=== PATIENT | female | born 1940 | race Caucasian/White ===

== ENCOUNTER 2018-03-15 14:02 | Emergency (ER) | payer MEDICARE | END 2018-03-15 15:04 | disposition home or self-care (01) | LOC: EDH 14:02 | DX: R21 Rash and other nonspecific skin eruption (principal); R20.8 Other disturbances of skin sensation; I11.0 Hypertensive heart disease with heart failure; I50.9 Heart failure, unspecified; E78.00 Pure hypercholesterolemia, unspecified; Z90.710 Acquired absence of both cervix and uterus; Z90.49 Acquired absence of other specified parts of digestive tract; Z85.9 Personal history of malignant neoplasm, unspecified; Z88.6 Allergy status to analgesic agent ==

== ENCOUNTER 2018-04-01 14:38 | Emergency (ER) | payer MEDICARE ==
[2018-04-01] MEDS ORDERED: DEXAMETHASONE 4 MG TAB PO ONE (16:59)
[2018-04-02] MEDS ORDERED: DEXAMETHASONE 4 MG TAB PO SCH (09:00)
== END 2018-04-01 16:59 | disposition home or self-care (01) ==
LOC: EDH 14:38
DX: J20.9 Acute bronchitis, unspecified (principal); I11.0 Hypertensive heart disease with heart failure; I50.9 Heart failure, unspecified; E78.00 Pure hypercholesterolemia, unspecified; Z88.5 Allergy status to narcotic agent; Z90.49 Acquired absence of other specified parts of digestive tract; Z90.710 Acquired absence of both cervix and uterus; Z91.048 Other nonmedicinal substance allergy status
CPT/HCPCS: 71046; 99283; J8540